=== PATIENT | male | born 1975 | race Caucasian/White ===

== ENCOUNTER 2017-05-18 13:10 | Emergency (ER) | payer OTHER ==
[~2017-05-18] VITALS: Ht 170.2 cm; Wt 59.0 kg
--- NOTE | 2017-05-18 13:10 | NUR ---
Patient was BIBA at this time.
[2017-05-18 13:12] VITALS: BP 114/96
[2017-05-18] MEDS ORDERED: ASPIRIN 81 MG TAB.CHEW PO ONE (13:15)
[2017-05-18] MEDS ORDERED: LORA-476 PO (13:17)
--- NOTE | 2017-05-18 13:17 | NUR ---
Patient taken to bed 06 via wheelchair per EMT.
--- NOTE | 2017-05-18 13:18 | NUR ---
41/M BIBA FROM HOME FOR CHEST PAIN X 1 WEEK. PT STATED HAS L CHEST PAIN 3/10 NON REDIATING AT THIS TIME. DENIES MEDICAL HISTRY, N/V/D; SKIN IS PINK/WARM/DRY; AAOX4 WITH EVEN AND STEADY GAIT; LUNGS CLEAR BL; HR EVEN AND REGULAR; PT DENIES ANY FEVER OR SOB AT THIS TIME; PATIENT STATES PAIN OF 3/10 AT THIS TIME; VSS; PATIENT POSITIONED FOR COMFORT; HOB ELEVATED; BEDRAILS UP X2; BED DOWN. ER MADE AWARE OF PT STATUS. Addendum: 05/18/17 at 1539 by [facility] .PT STATED CUT HIS LFA 1 YEAR AGO. DENIES ANY SUICIDAL IDEATION AT THIS TIME.
--- NOTE | 2017-05-18 13:30 | NUR ---
X RAY AT BEDSIDE
[2017-05-18 13:32] LABS: BASOPHILS # (AUTO) 0.1 K/uL (0.00-0.22); BASOPHILS % (AUTO) 2.1 % (0.0-2.0); EOSINOPHILS # (AUTO) 0.2 K/uL (0-0.4); EOSINOPHILS % (AUTO) 2.3 % (0.0-4.0); HEMATOCRIT 40.5 % (36-52); LYMPHOCYTES # (AUTO) 2.6 K/uL (2.0-11.5); LYMPHOCYTES % (AUTO) 36.6 % (20.5-51.1); MEAN CORPUSCULAR HEMOGLOBIN 32 pg (27-31); MEAN CORPUSCULAR HGB CONC 35 g/dL (33-37); MEAN CORPUSCULAR VOLUME 93 fL (80-94); MONOCYTES # (AUTO) 0.5 K/uL (0.8-1.0); MONOCYTES % (AUTO) 7.2 % (1.7-9.3); NEUTROPHILS # (AUTO) 3.7 K/uL (1.8-7.7); NEUTROPHILS % (AUTO) 51.8 % (42.2-75.2); PLATELET COUNT (AUTO) 191 K/uL (140-450); RED BLOOD CELL COUNT(AUTO) 4.36 MIL/uL (4.20-6.10); RED CELL DISTRIBUTION WIDTH 11.7 % (11.6-13.7); WHITE BLOOD COUNT (AUTO) 7.1 K/uL (4.8-10.8)
[2017-05-18 13:43] LABS: ANION GAP 12.7 (8-16); CALCIUM 9.3 mg/dL (8.5-10.1); CREATININE 1.4 mg/dL (0.7-1.3); POTASSIUM 3.7 mmol/L (3.5-5.1)
--- NOTE | 2017-05-18 13:43 | NUR ---
Patient appears to be resting comfortably in bed. Vital Signs within normal limits. Respirations even and unlabored.WILL CONTINUE TO MONITOR AT THIS TIME. DENIES CHEST PAIN AT THIS TIME.
[2017-05-18 13:47] LABS: INR 1.1 (0.8-1.2); PARTIAL THROMBOPLASTIN TIME 26.2 secs (22-35.6); PROTHROMBIN TIME 10.7 secs (10.8-13.4)
[2017-05-18 13:49] LABS: ALBUMIN 4.3 g/dL (3.4-5.0); TOTAL BILIRUBIN 0.3 mg/dL (0.0-1.0); TOTAL PROTEIN, SERUM 8.4 g/dL (6.4-8.2)
--- NOTE | 2017-05-18 15:10 | NUR ---
PT AMB TO REST ROOM. PT URENATED; URINE DIP DONE; NOTIFIED ER MD DR WEEMS.
--- NOTE | 2017-05-18 15:15 | NUR ---
ER MD DR WEEMS REEVALUATING PT AT BEDSIDE.
[2017-05-18 15:36] VITALS: BP 121/81
--- NOTE | 2017-05-18 15:37 | NUR ---
Patient discharged with v/s stable. Written and verbal after care instructions given and explained. Patient alert, oriented and verbalized understanding of instructions. Ambulatory with steady gait. All questions addressed prior to discharge. ID band removed. Patient advised to follow up with PMD. Rx of NAPROSYN & ATIVAN given. Patient educated on indication of medication including possible reaction and side effects. Opportunity to ask questions provided and answered.
== END 2017-05-18 15:37 | disposition home or self-care (01) ==
LOC: MED 13:10
DX: R07.9 Chest pain, unspecified (principal); M54.2 Cervicalgia; R20.0 Anesthesia of skin; F17.200 Nicotine dependence, unspecified, uncomplicated; F41.9 Anxiety disorder, unspecified; Z88.1 Allergy status to other antibiotic agents; Z87.442 Personal history of urinary calculi
CPT/HCPCS: 36415; 71010; 80053; 81002; 82553; 83880; 84484; 85025; 85610; 85730; 93005; 99285; Q0092